=== PATIENT | male | born 1970 | race Caucasian/White ===

== ENCOUNTER 2019-07-10 23:19 | Inpatient (IN) | payer BC ==
[~2019-07-10] VITALS: Ht 188 cm; Wt 117.2 kg
--- NOTE | 2019-07-10 23:25 | NUR ---
INITIAL CONTACT WITH PT. PT TRANSFERRED HERE FROM [facility] FOR FURTHER WORK UP ON CHEST PAIN WITH ELEVATED TROPS. PT IS PAIN FREE AT THIS TIME. MD AT BEDSIDE.
[2019-07-10] MEDS ORDERED: SODIUM CHLORIDE FLUSH 10ML SYR IVF ONE (23:30)
[2019-07-10] MEDS ORDERED: HEPARIN 5,000 UNITS/ML, 1ML IV ONE (23:45)
[2019-07-10] MEDS ORDERED: PLEASE ENTER ALLERGIES MC SCH (23:45)
[2019-07-10] MEDS ORDERED: HEPARIN 25,000 UNITS/500ML PMX 500 ML IV PRN (23:45)
[2019-07-11] MEDS ORDERED: HEPARIN 5,000 UNITS/ML, 1ML ONE (00:17)
[2019-07-11] MEDS ORDERED: HEPARIN 25,000 UNITS/500ML PMX 500 ML ONE (00:17)
[2019-07-11] MEDS ORDERED: SODIUM CHLORIDE FLUSH 10ML SYR IVF PRN (00:30)
--- NOTE | 2019-07-11 00:35 | NUR ---
REPORT TO ELEAZAR CUELLO. PT TO BE ADMITTED TO 508, HEPARIN BOLUS AND INFUSION INITIATED. PT REMAINS PAIN FREE, VS UPDATED.
[2019-07-11 01:00] VITALS: BP 164/102
[2019-07-11 01:02] VITALS: BP 162/102
[2019-07-11] MEDS ORDERED: ONDANSETRON 2MG/ML, 2ML IVPush PRN (04:00)
[2019-07-11] MEDS ORDERED: ENALAPRILAT 1.25 MG/ML, 2ML IVPush PRN (04:00)
[2019-07-11] MEDS ORDERED: HEPARIN 5,000 UNITS/ML, 1ML IV PRN (04:00)
[2019-07-11] MEDS ORDERED: morphine SULFATE 10 MG/ML, 1ML IVPush PRN (04:00)
[2019-07-11] MEDS ORDERED: hydrALAzine 20 MG/ML, 1ML IVPush PRN (04:00)
[2019-07-11] MEDS: NITROGLYCERIN OINT 2%, 1GM TP SCH ×2 (04:13→10:00)
[2019-07-11] MEDS ORDERED: ASPIRIN 325 MG TABLET EC PO SCH (06:00)
[2019-07-11 06:56] LABS: ANION GAP 6 mmol/L (5-15); CALCIUM 8.5 mg/dL (8.5-10.1); CHLORIDE 106 mmol/L (98-107); CREATININE 1.03 mg/dL (0.7-1.3); TRIGLYCERIDES 160 mg/dL (50-200); VLDL CHOLESTEROL 32 mg/dL (0-25)
[2019-07-11 07:00] LABS: CHOL/HDL RATIO 4.5; CHOLESTEROL, TOTAL 200 mg/dL (140-239); HDL CHOL % 22 % (26-37); HDL CHOLESTEROL (DIRECT) 44 mg/dL (40-60); LDL CHOLESTEROL,CALCULATED 124 mg/dL (54-169); LDL/HDL RATIO 2.8 (0.5-3.0)
[2019-07-11 07:31] LABS: HEMOGLOBIN A1C 5.7 % (4.2-6.3)
[2019-07-11 07:45] VITALS: BP 138/83
[2019-07-11] MEDS ORDERED: FENTANYL PF 100 MCG/2ML ONE (09:52)
[2019-07-11] MEDS ORDERED: MIDAZOLAM 1 MG/ML, 5ML ONE (09:52)
[2019-07-11] MEDS ORDERED: BIVALIRUDIN 250 MG ONE (09:53)
[2019-07-11] MEDS ORDERED: TICAGRELOR 90 MG TABLET ONE (09:53)
[2019-07-11] MEDS ORDERED: HEPARIN 1,000 UNITS/ML, 10ML ONE (09:53)
[2019-07-11] MEDS ORDERED: NITROGLYCERIN 5 MG/ML, 10ML ONE (09:53)
[2019-07-11] MEDS ORDERED: LIDOCAINE 2%, 20ML ONE (09:53)
[2019-07-11] MEDS ORDERED: VERAPAMIL 2.5 MG/ML, 2ML ONE (09:53)
[2019-07-11] MEDS ORDERED: SODIUM CHLORIDE 0.9% 1,000 ML IV SCH (11:22)
[2019-07-11 14:14] VITALS: BP 115/73
[2019-07-11] MEDS: METOPROLOL TARTRATE 25 MG TABLET PO SCH (18:31)
[2019-07-11] MEDS: ATORVASTATIN 80 MG TABLET PO SCH (19:45)
[2019-07-11] MEDS: TICAGRELOR 90 MG TABLET PO SCH (19:47)
[2019-07-11] MEDS: ACETAMINOPHEN 325 MG TABLET PO PRN (19:52)
[2019-07-11 19:53] VITALS: BP 123/70
[2019-07-11] MEDS: LISINOPRIL 5 MG TABLET PO SCH (19:53)
[2019-07-12 01:36] VITALS: BP 122/79
[2019-07-12] MEDS: METOPROLOL TARTRATE 25 MG TABLET PO SCH (05:21)
[2019-07-12 06:21] LABS: BASOPHILS # (AUTO) 0.02 x10^3/uL (0-0.1); BASOPHILS % (AUTO) 0 % (0-1); EOSINOPHILS # (AUTO) 0.11 x10^3/uL (0-0.4); EOSINOPHILS % (AUTO) 1 % (1-7); LYMPHOCYTES # (AUTO) 1.95 x10^3/uL (1-3.4); LYMPHOCYTES % (AUTO) 26 % (22-44); MD NO; MEAN CORPUSCULAR HEMOGLOBIN 31.1 pg (27.5-34.5); MEAN CORPUSCULAR HGB CONC 33.7 g/dL (33.2-36.2); MEAN CORPUSCULAR VOLUME 92.3 fL (81-97); MEAN PLATELET VOLUME 8.5 fL (7.4-10.4); MONOCYTES # (AUTO) 0.82 x10^3/uL (0.2-0.8); MONOCYTES % (AUTO) 11 % (2-9); NEUTROPHILS # (AUTO) 4.53 x10^3/uL (1.8-6.8); NEUTROPHILS % (AUTO) 61 % (42-75); PLATELET COUNT 148 x10^3/uL (130-400); RED BLOOD COUNT 5.29 x10^6/uL (4.38-5.82); RED CELL DISTRIBUTION WIDTH 13.7 % (9.4-14.8)
[2019-07-12 06:33] LABS: ANION GAP 5 mmol/L (5-15); CALCIUM 8.7 mg/dL (8.5-10.1); CHLORIDE 108 mmol/L (98-107)
[2019-07-12 06:53] VITALS: BP 130/60
[2019-07-12] MEDS: ASPIRIN 81 MG TABLET EC PO SCH (08:59)
[2019-07-12] MEDS: TICAGRELOR 90 MG TABLET PO SCH ×2 (08:59→19:25)
[2019-07-12] MEDS: LISINOPRIL 5 MG TABLET PO SCH ×2 (08:59→19:26)
[2019-07-12 14:15] VITALS: BP 124/63
[2019-07-12] MEDS ORDERED: METOPROLOL SUCCINATE 25 MG TAB.ER.24H PO SCH (18:00)
[2019-07-12 19:13] VITALS: BP 143/90
[2019-07-12] MEDS: ACETAMINOPHEN 325 MG TABLET PO PRN (19:26)
[2019-07-12] MEDS: ATORVASTATIN 80 MG TABLET PO SCH (19:26)
[2019-07-13 01:09] VITALS: BP 131/78
[2019-07-13 07:53] VITALS: BP 142/82
[2019-07-13] MEDS ORDERED: ATOR-2 PO (08:01)
[2019-07-13] MEDS ORDERED: ASPI81TA45 PO (08:01)
[2019-07-13] MEDS ORDERED: LISI-167 PO (08:01)
[2019-07-13] MEDS ORDERED: METO25TA91 PO (08:01)
[2019-07-13] MEDS ORDERED: TICA90TA PO (08:01)
[2019-07-13] MEDS: LISINOPRIL 10 MG TABLET PO SCH ×2 (08:30→08:41)
[2019-07-13] MEDS: TICAGRELOR 90 MG TABLET PO SCH (08:30)
[2019-07-13] MEDS: ASPIRIN 81 MG TABLET EC PO SCH (08:30)
== END 2019-07-13 10:32 | disposition home or self-care (01) | DRG 246 ==
LOC: ED 07-11 00:12 → EDIP 07-11 00:13 → 5SO 07-11 01:04 → DCLOUNGE 07-13 10:15
PROVIDERS: ADMIT Family Medicine; ATTEND Family Medicine
PROC: 027034Z Dilation of Coronary Artery, One Artery with Drug-eluting Intraluminal Device, Percutaneous Approach (ICD-10-PCS; principal; 2019-07-11)
PROC: 4A023N7 Measurement of Cardiac Sampling and Pressure, Left Heart, Percutaneous Approach (ICD-10-PCS; 2019-07-11)
PROC: B2111ZZ Fluoroscopy of Multiple Coronary Arteries using Low Osmolar Contrast (ICD-10-PCS; 2019-07-11)
PROC: B2151ZZ Fluoroscopy of Left Heart using Low Osmolar Contrast (ICD-10-PCS; 2019-07-11)
DX: I21.4 Non-ST elevation (NSTEMI) myocardial infarction (principal); I50.31 Acute diastolic (congestive) heart failure; E66.9 Obesity, unspecified; Z68.33 Body mass index [BMI] 33.0-33.9, adult; E78.5 Hyperlipidemia, unspecified; I11.0 Hypertensive heart disease with heart failure; I25.10 Atherosclerotic heart disease of native coronary artery without angina pectoris; N52.9 Male erectile dysfunction, unspecified; M24.541 Contracture, right hand; R00.1 Bradycardia, unspecified; I95.9 Hypotension, unspecified; Z87.891 Personal history of nicotine dependence
CPT/HCPCS: 36415; 93458; 96374; 96375; 99285; C9600; J3490; 80048; 80061; 83036; 84484; 85025; 85520; 93005; 93306; 99156; 99157; C1769; C1894; G0378; J0583; J1644; J2250; J3010; C1725; C1874; C1887; Q9967

== ENCOUNTER → 2019-10-01 | Outpatient (CLI) | payer BC ==
[~2019-10-01] MED LIST: ASPI81TA45 PO; ATOR-2 PO; LISI-167 PO; METO25TA91 PO; TICA90TA PO
== END | disposition home or self-care (01) ==
LOC: CVU 10:37
PROVIDERS: ATTEND Internal Medicine Cardiovascular Disease
DX: I35.1 Nonrheumatic aortic (valve) insufficiency (principal); I25.10 Atherosclerotic heart disease of native coronary artery without angina pectoris; I11.9 Hypertensive heart disease without heart failure; E78.5 Hyperlipidemia, unspecified
CPT/HCPCS: 93306